=== PATIENT | male | born 1950 | race African-American/Black ===

== ENCOUNTER 2021-09-04 08:01 | Emergency (ER) | payer MEDICARE, OTHER ==
[~2021-09-04] VITALS: Ht 177.8 cm; Wt 95.3 kg
[2021-09-04 11:39] LABS: Basophils # (auto) 0 10 ^3/uL (0-0.2); Basophils % (auto) 0.2 % (0.0-2.0); Eosinophils # (auto) 0 10 ^3/uL (0-0.8); Eosinophils % (auto) 0.1 % (0.0-7.0); Hematocrit 41.3 % (41.0-53.0); Hemoglobin 13.2 g/dL (13.5-17.5); Lymphocytes # (auto) 0.8 10 ^3/uL (0.4-5.4); Lymphocytes % (auto) 17.8 % (10.0-50.0); Mean Corpuscular Hemoglobin 28.6 pg (28.0-32.0); Mean Corpuscular Volume 89.3 fL (80.0-100.0); Monocytes # (auto) 0.4 10 ^3/uL (0-1.3); Monocytes % (auto) 8.5 % (0.0-12.0); Neutrophils # (auto) 3.3 10 ^3/uL (1.6-8.6); Neutrophils % (auto) 73.4 % (37.0-80.0); Nucleated Red Blood Cells % 0.1 %; Red Blood Cells 4.62 10^6/uL (4.5-5.90); Red Cell Distribution Width 16.6 % (11.8-14.3); White Blood Cell 4.5 10^3/uL (4.4-10.8)
[2021-09-04 12:02] LABS: Albumin 3.7 g/dL (3.4-5.0); Calcium 8.6 mg/dL (8.5-10.1); Potassium 4.3 mmol/L (3.5-5.1)
[2021-09-04 12:05] LABS: BUN/Creatinine Ratio 16.2; Bilirubin, Total 2.5 mg/dL (0.2-1.0); Total Protein 7.5 g/dL (6.4-8.2)
[2021-09-04 12:38] VITALS: BP 120/87
[2021-09-04] MEDS ORDERED: DOXY-338 PO (15:24)
[2021-09-04] MEDS ORDERED: PERCOT PO (15:24)
== END 2021-09-04 15:44 | disposition home or self-care (01) ==
LOC: ER 08:01
DX: M48.061 Spinal stenosis, lumbar region without neurogenic claudication (principal); K80.20 Calculus of gallbladder without cholecystitis without obstruction; E03.9 Hypothyroidism, unspecified; Z95.1 Presence of aortocoronary bypass graft; Z79.899 Other long term (current) drug therapy; Z79.2 Long term (current) use of antibiotics
CPT/HCPCS: 36415; 72100; 74176; 76705; 80053; 83690; 84484; 85025; 93005

== ENCOUNTER 2021-09-29 13:04 | Emergency (ER) | payer MEDICARE, OTHER ==
[~2021-09-29] VITALS: Ht 180.3 cm; Wt 101.0 kg
[~2021-09-29 13:04] MED LIST: DOXY-338 PO; PERCOT PO
[2021-09-29 13:42] VITALS: BP 103/64
[2021-09-29 14:29] LABS: Basophils # (auto) 0 10 ^3/uL (0-0.2); Basophils % (auto) 0.9 % (0.0-2.0); Eosinophils # (auto) 0 10 ^3/uL (0-0.8); Eosinophils % (auto) 1.1 % (0.0-7.0); Hematocrit 42.1 % (41.0-53.0); Hemoglobin 13.1 g/dL (13.5-17.5); Lymphocytes # (auto) 1.2 10 ^3/uL (0.4-5.4); Lymphocytes % (auto) 36.9 % (10.0-50.0); Mean Corpuscular Hgb Conc. 31.2 g/dL (32.0-36.0); Mean Corpuscular Volume 86.8 fL (80.0-100.0); Monocytes # (auto) 0.5 10 ^3/uL (0-1.3); Monocytes % (auto) 14.7 % (0.0-12.0); Neutrophils # (auto) 1.5 10 ^3/uL (1.6-8.6); Neutrophils % (auto) 46.4 % (37.0-80.0); Nucleated Red Blood Cells % 0.2 %; Red Blood Cells 4.86 10^6/uL (4.5-5.90); Red Cell Distribution Width 16.9 % (11.8-14.3); White Blood Cell 3.3 10^3/uL (4.4-10.8)
[2021-09-29 14:47] LABS: Albumin 3.4 g/dL (3.4-5.0); Calcium 8.7 mg/dL (8.5-10.1); Potassium 4.2 mmol/L (3.5-5.1)
[2021-09-29 14:51] LABS: Bilirubin, Total 2.3 mg/dL (0.2-1.0); Total Protein 7.2 g/dL (6.4-8.2)
== END 2021-09-29 17:00 | disposition home or self-care (01) ==
LOC: ER 13:04
DX: R60.0 Localized edema (principal); I87.2 Venous insufficiency (chronic) (peripheral); I50.9 Heart failure, unspecified
CPT/HCPCS: 36415; 71045; 80053; 83615; 83880; 85025; 93005

== ENCOUNTER 2021-11-25 17:56 | Inpatient (IN) | payer MEDICARE, OTHER ==
[~2021-11-25] VITALS: Ht 177.8 cm; Wt 78.0 kg
[2021-11-25 20:19] VITALS: BP 97/73
[2021-11-25] MEDS ORDERED: ENOXAPARIN SOD 100 MG/1 ML SYRINGE SC ONE (20:30)
[2021-11-25 21:25] LABS: Basophils # (auto) 0.1 10 ^3/uL (0-0.2); Eosinophils # (auto) 0 10 ^3/uL (0-0.8); Eosinophils % (auto) 0.2 % (0.0-7.0); Hemoglobin 12.5 g/dL (13.5-17.5); Mean Corpuscular Hemoglobin 25.2 pg (28.0-32.0); Neutrophils # (auto) 4.6 10 ^3/uL (1.6-8.6); Nucleated Red Blood Cells % 0.1 %; Red Blood Cells 4.97 10^6/uL (4.5-5.90)
[2021-11-25 21:26] LABS: Basophils % (auto) 0.8 % (0.0-2.0); Hematocrit 39.8 % (41.0-53.0); Lymphocytes # (auto) 0.9 10 ^3/uL (0.4-5.4); Lymphocytes % (auto) 14.3 % (10.0-50.0); Mean Corpuscular Hgb Conc. 31.5 g/dL (32.0-36.0); Mean Corpuscular Volume 80.1 fL (80.0-100.0); Monocytes # (auto) 0.9 10 ^3/uL (0-1.3); Monocytes % (auto) 13.9 % (0.0-12.0); Neutrophils % (auto) 70.8 % (37.0-80.0); White Blood Cell 6.5 10^3/uL (4.4-10.8)
[2021-11-25 21:41] LABS: Albumin 3.2 g/dL (3.4-5.0); Anion Gap 11 (5-15); BUN/Creatinine Ratio 17.9; Blood Urea Nitrogen 21 mg/dL (7-18); Calcium 8.9 mg/dL (8.5-10.1); Carbon Dioxide 21 mmol/L (21-32); Chloride 106 mmol/L (98-107); GFR African American 79 mL/min; GFR Non-African American 65 mL/min; Glucose 108 mg/dL (74-106); INR 1.15 (0.9-1.15); Partial Thromboplastin Time 32.1 sec (24.6-33.4); Potassium 4.7 mmol/L (3.5-5.1); Sodium 138 mmol/L (136-145)
[2021-11-25 21:44] LABS: Alanine Aminotransferase 26 U/L (16-61); Alkaline Phosphatase 198 U/L (45-117); Aspartate Aminotransferase 29 U/L (15-37); Bilirubin, Total 3.8 mg/dL (0.2-1.0); Total Protein 7.9 g/dL (6.4-8.2)
[2021-11-25] MEDS ORDERED: FUROSEMIDE 20 MG TAB PO ONE (22:45)
[2021-11-25] MEDS ORDERED: DOCUSATE SOD 100 MG CAP PO PRN (23:30)
[2021-11-25] MEDS ORDERED: ONDANSETRON HCL 4 MG/2 ML VIAL IV PRN (23:30)
[2021-11-25] MEDS ORDERED: HYDROcodone-ACET 5/325MG TAB PO PRN (23:30)
[2021-11-25] MEDS ORDERED: ACETAMINOPHEN 325 MG TAB PO PRN (23:30)
[2021-11-26] MEDS ORDERED: NITROGLYCERIN 0.4 MG SL TAB SL PRN
[2021-11-26] MEDS ORDERED: MORPHINE SULFATE INJ 2 MG/ml SYRG IV PRN
[2021-11-26] MEDS ORDERED: SODIUM CHLOR 0.9% PF (SALINE LOCK) 10ML VIAL/SYR IV SCH (06:00)
[2021-11-26] MEDS ORDERED: FAMOTIDINE (10MG/ML) 2ML VL IV SCH (10:00)
[2021-11-26] MEDS ORDERED: ENOXAPARIN SOD 40 MG/0.4 ML SYRINGE SC SCH (10:00)
[2021-11-26] MEDS ORDERED: FUROSEMIDE 40 MG/4 ML VIAL IV SCH (10:00)
== END 2021-11-26 01:15 | disposition left against medical advice (07) | DRG 293 ==
LOC: ER 17:58 → TELE 23:54
PROVIDERS: ADMIT Nurse Practitioner Family; ATTEND Internal Medicine
DX: I50.23 Acute on chronic systolic (congestive) heart failure (principal); E88.09 Other disorders of plasma-protein metabolism, not elsewhere classified; Z79.01 Long term (current) use of anticoagulants; Z95.1 Presence of aortocoronary bypass graft; Z86.718 Personal history of other venous thrombosis and embolism; Z53.29 Procedure and treatment not carried out because of patient's decision for other reasons
CPT/HCPCS: 36415; 71045; 80053; 83735; 83880; 84484; 85025; 85610; 85730; 93005; 93971; 96372; G0378

== ENCOUNTER 2022-08-14 08:29 | Emergency (ER) | payer MEDICARE, OTHER ==
[~2022-08-14] VITALS: Ht 177.8 cm; Wt 83.0 kg
[~2022-08-14 08:29] MED LIST changes: -DOXY-338 PO; +DOXY-447 PO
[2022-08-14 09:10] LABS: Urine Bacteria FEW /hpf (None Seen); Urine Blood Negative /uL (Negative); Urine Specific Gravity 1.014 (1.001-1.035); Urine WBC 1 /hpf (0 - 3)
[2022-08-14] MEDS ORDERED: SODIUM CHLORIDE 0.9% 1,000 ML IV ONE (11:15)
[2022-08-14 11:54] LABS: Basophils # (auto) 0 10 ^3/uL (0-0.2); Basophils % (auto) 0.4 % (0.0-2.0); Eosinophils # (auto) 0 10 ^3/uL (0-0.8); Eosinophils % (auto) 0.1 % (0.0-7.0); Hematocrit 43.4 % (41.0-53.0); Lymphocytes # (auto) 0.8 10 ^3/uL (0.4-5.4); Mean Corpuscular Hemoglobin 27.8 pg (28.0-32.0); Mean Corpuscular Hgb Conc. 32.4 g/dL (32.0-36.0); Mean Corpuscular Volume 85.7 fL (80.0-100.0); Monocytes % (auto) 14.7 % (0.0-12.0); Neutrophils % (auto) 72.8 % (37.0-80.0); Nucleated Red Blood Cells % 0.1 %; Red Blood Cells 5.06 10^6/uL (4.5-5.90); Red Cell Distribution Width 19.3 % (11.8-14.3); White Blood Cell 6.8 10^3/uL (4.4-10.8)
[2022-08-14 12:12] LABS: Albumin 3.6 g/dL (3.4-5.0); BUN/Creatinine Ratio 12.3 (10.0-20.0); Calcium 9.5 mg/dL (8.5-10.1); Potassium 4.8 mmol/L (3.5-5.1)
[2022-08-14 12:15] LABS: Bilirubin, Total 5.2 mg/dL (0.2-1.0); Total Protein 7.9 g/dL (6.4-8.2)
[2022-08-14 12:21] LABS: INR 1.25 (0.9-1.15); Partial Thromboplastin Time 30.5 sec (24.6-33.4)
[2022-08-14] MEDS ORDERED: TAMS-35 PO (15:33)
[2022-08-14] MEDS ORDERED: TAMSULOSIN HYDROCHLORIDE 0.4 MG CAP PO ONE (15:45)
[2022-08-14 16:01] VITALS: BP 113/81
== END 2022-08-14 16:10 | disposition home or self-care (01) ==
LOC: ER 08:29
DX: N40.0 Benign prostatic hyperplasia without lower urinary tract symptoms (principal); R33.9 Retention of urine, unspecified; Z79.899 Other long term (current) drug therapy
CPT/HCPCS: 36415; 71045; 80053; 81001; 84484; 85025; 85610; 85730

== ENCOUNTER 2024-06-02 20:13 | Emergency (ER) | payer MEDICARE, OTHER ==
[~2024-06-02] VITALS: Ht 177.8 cm; Wt 81.8 kg
[~2024-06-02 20:13] MED LIST changes: -DOXY-447 PO; +DOXY1CAP58 PO; +TAMS-35 PO
--- NOTE | 2024-06-02 21:04 | ED.PDOC ---
History of Present Illness HPI Comments 74 y/o M, with a history of CABG, DVT, HTN, leukemia, pacemaker, and thyroid disease, is BIBA for c/o generalized weakness, today. Per EMS report, patient lives alone and his family called after finding him in current stated after having difficulty making contact for the past few days. Patient was reported by family to have been diagnosed with leukemia, recently. He was noted to have been found on scene in his bed lethargic and slow to respond to questions, with odorous urine smell and entire household being cluttered with various personal belongings. At time of initial assessment and contact with patient, patient is responds to his name but is slow to answering questions and providing additional relevant information. He has no further additional associated symptoms endorsed. Further history cannot be obtained, due to patient's current stated and absence of family/caretakers. Chief Complaint: General Weakness Time Seen by MD: 20:17 Primary Care Provider: FRANCO Sylvester Notes: Nurses Notes, Warehouse Supervisor 3Rd Shift Notes, Medications, Allergies Allergies: Coded Allergies: NO KNOWN ALLERGIES (Unverified , 09/04/21) Home Meds Active Scripts Tamsulosin Hcl (Flomax) 0.4 Mg Cap, 1 CAP PO DAILY for 10 Days, #10 CAP 11 Refills Prov:ALMITA BORJA MD 08/14/22 Oxycodone W/ Acetaminophen (Percocet 5/325MG) 1 Tab Tb, 1 TAB PO PRN PRN, #10 TAB 0 Refills one tablet every 4 to 6 hours as needed for pain Prov:LORI DOS SANTOS 09/04/21 Doxycycline (Monohydrate) (Doxycycline) 100 Mg Cap, 100 MG PO BID for 7 Days, #14 CAP 0 Refills Prov:LORI DOS SANTOS 09/04/21 Information Source: Patient, Emergency Med Personnel Mode of Arrival: EMS Severity: Moderate Timing: Hours Duration: Since onset Prehospital treatment: 12 Lead EKG, Accucheck, Shuttle Threader Past Medical History PAST MEDICAL HISTORY: CKF, HTN, Thyroid Past Medical History (Other): DVT Surgical History: CABG, Pacemaker Family History Family History: Reviewed,noncontributory to illness Social History Smoker: Non-Smoker Alcohol: Denies ETOH Use Drugs: Denies Drug Use Lives In: Home All Other Systems: Reviewed and Negative (Comprehensive systems review obtained and negative except for what is stated in the HPI.) Physical Exam General Appearance: No Apparent Distress, Normal, Other (tired appearing) HEENT: Normal ENT Inspection, Pharynx Normal, TMs Normal, Other (dry mucus membranes) Neck: Full Range of Motion, Non-Tender, Normal, Normal Inspection Respiratory: Chest Non-Tender, Lungs Clear, No Accessory Muscle Use, No Respiratory Distress, Normal Breath Sounds Cardiovascular: No Edema, No JVD, No Murmur, No Gallop, Normal Peripheral Pulses, Regular Rate/Rhythm Breast Exam: Deferred Gastrointestinal: No Organomegaly, Non Tender, No Pulsatile Mass, Normal Bowel Sounds, Soft Genitalia: Deferred Pelvic: Deferred Rectal: Deferred Extremities: No calf tenderness, Normal capillary refill, Normal inspection, Normal range of motion, Non-tender, No pedal edema Musculoskeletal : Apperance: Normal Neurologic: Alert, counseling services manager II-XII nml as Tested, No Motor Deficits, No Sensory Deficits, Other (slow to respond ) Cerebellar Function: Normal Reflexes: Normal Skin: Dry, Normal Color, Warm Lymphatic: No Adenopathy Was a procedure done? Was a procedure done?: Yes Sedation Sedation?: Yes Informed consent obtained: No Sedation start time: 22:07 Sedation end time: 22:27 Sedation total time: 20x minutes Central Line Recorder of insertion practice: Customer Development Representative Occupation of rn first assist: Attending Physician Indication: Volume resuscitation Room prepared for procedure: Yes Customer Development Representative performed hand hygien: Yes Maximal sterile barrier precau: Mask/Eye shield, Sterile gown, Cap, Sterlie gloves, Large sterlie drape Skin Preparation: Chlorhexidine gluconate, Alcohol Skin preparation completely dr: Yes Insertion site: Right, Femoral Central line catheter type: Wks-teigbgae-zmi dialysis Number of lumens: 3 Central line exchanged over a: No Antiseptic ointment applied to: No Post Assessment: Chest X-Ray, Proper placement Informed consent obtained: No Risks/benefits/alt described: No Intubation Indication: Altered Mental Status, Airway Protection Prep: No Preoxygenation Pretreated with: Other (propofol ) Medicated with: Other (100mg rocuronium IVP, 10mg Versed IVP) Intubation Approach: Orotracheal (8.0) Intubation size: cm (24) Informed consent obtained: No Risks/benefits/alt described: No EKG EKG : Pulse Rate (adult): 119 [place]: Normal Cardiac Rhythm: ST Block: LBBB (incomplete ) Hypertrophy: LVH ST: Normal Differential Dx Considerations may include: electrolyte imbalance, dehydration, viral syndrome, PNA, URI, among others X-Ray, Labs, Meds, VS Vital Signs Date Time Temp Pulse Resp B/P (MAP) Pulse Ox O2 Delivery O2 Flow Rate FiO2 06/02/24 23:10 99.0 117 16 98/68 (78) 100 99.0 06/02/24 22:56 99.0 120 16 97/61 (73) 100 99.0 06/02/24 22:22 143 16 143/115 (124) 100 100 06/02/24 22:21 143/115 06/02/24 22:20 141 12 143/115 (124) 100 06/02/24 22:18 127/64 06/02/24 22:00 107 18 127/64 (85) 99 06/02/24 21:11 99.9 124 18 117/54 (75) 97 99.9 06/02/24 21:11 124 18 97 Room Air* 0 21 06/02/24 21:04 119 06/02/24 20:28 97.3 121 21 140/85 (103) 94 97.3 06/02/24 20:14 119 Lab Test 06/02/24 23:06 06/02/24 22:42 06/02/24 21:03 Range/Units Lactic Acid Level 3.0 *H 2.2 *H 0.4-2.0 mmol/L Urine Color Light-orange Yellow Urine Clarity Turbid H Clear Urine pH 6.0 5.0-9.0 Urine Specific [place] 1.033 1.001-1.035 Urine Protein 2+ H Negative Urine Ketones 1+ H Negative Urine Blood 3+ H Negative /uL Urine Nitrite 2+ H Negative Urine Bilirubin Negative Negative Urine Urobilinogen 2 H Negative mg/dL Urine Leukocyte Esterase 2+ Negative /uL Urine RBC 155 0 - 3 /hpf Urine Microscopic WBC 37 H 0-3 /HPF Urine Squamous Epithelial Cells Few <5 /hpf Urine Bacteria Many H None Seen /hpf Urine Mucus Few None Seen Urine Glucose Normal Normal mg/dL White Blood Count 11.4 H 4.4-10.8 10^3/uL Red Blood Count 4.80 4.5-5.90 10^6/uL Hemoglobin 15.7 13.5-17.5 g/dL Hematocrit 45.9 41.0-53.0 % Mean Corpuscular Volume 95.6 80.0-100.0 fL Mean Corpuscular Hemoglobin 32.7 H 28.0-32.0 pg Mean Corpuscular Hemoglobin Concent 34.2 32.0-36.0 g/dL Red Cell Distribution Width 16.0 H 11.8-14.3 % Platelet Count 252 140-450 10^3/uL Mean Platelet Volume 8.0 6.9-10.8 fL Neutrophils (%) (Auto) 85.2 H 37.0-80.0 % Lymphocytes (%) (Auto) 4.2 L 10.0-50.0 % Monocytes (%) (Auto) 10.4 0.0-12.0 % Eosinophils (%) (Auto) 0.0 0.0-7.0 % Basophils (%) (Auto) 0.2 0.0-2.0 % Neutrophils # (Auto) 9.7 H 1.6-8.6 10 ^3/uL Lymphocytes # (Auto) 0.5 0.4-5.4 10 ^3/uL Monocytes # (Auto) 1.2 0-1.3 10 ^3/uL Eosinophils # (Auto) 0 0-0.8 10 ^3/uL Basophils # (Auto) 0 0-0.2 10 ^3/uL Nucleated Red Blood Cells 0.1 % Sodium Level 144 136-145 mmol/L Potassium Level 4.1 3.5-5.1 mmol/L Chloride Level 107 98-107 mmol/L Carbon Dioxide Level 25 20-31 mmol/L Anion Gap 12 5-15 Blood Urea Nitrogen 34 H 9-23 mg/dL Creatinine 1.17 0.700-1.30 mg/dL Glomerular Filtration Rate Calc 65 >90 mL/min BUN/Creatinine Ratio 29.1 H 10.0-20.0 Serum Glucose 137 H 74-106 mg/dL Calcium Level 10.1 8.7-10.4 mg/dL Total Bilirubin 4.3 H 0.2-1.0 mg/dL Aspartate Amino Transferase (AST) 134 H 13-40 U/L Alanine Aminotransferase (ALT) 34 7-40 U/L Alkaline Phosphatase 154 H 46-116 U/L Creatine Kinase 5336 H 46-171 U/L Troponin I High Sensitivity 110 *H </=54 ng/L B-Type Natriuretic Peptide 799.51 0-100 pg/mL Total Protein 7.8 5.7-8.2 g/dL Albumin 4.9 H 3.2-4.8 g/dL Microbiology Date/Time Source Procedure Growth Status 06/02/24 22:22 Sputum Gram Stain - Final Complete 06/02/24 22:22 Sputum Respiratory Culture - Final Complete [place] [address] Ph: [phone] DIAGNOSTIC IMAGING Diagnostic Imaging Report : [id number] Signed PATIENT: JELLY VILLA ACCT: [id number] UNIT: [id number] : 1950 LOC: ER ROOM / BED: / AGE / SEX: 74 / M ADM STATUS: REG ER SERVICE 25 ORDERING PHYSICIAN: JACK ORTIZ MD PROCEDURE(s): HWOCT - HEAD WITHOUT CONTRAST REASON: found down ORDER NUMBER(s): [id number], ACCESSION NUMBER(s): [id number] EXAM: CT HEAD WITHOUT CONTRAST INDICATION: found down TECHNIQUE: CT of the head without intravenous contrast. Radiation Dose : 1. Head: CT Dose: CTDI volume is 59.71 mGy. Dose-length product is 1076.53 mGy*cm The dose indicators for CT are the volume Computed Tomography (CT) Dose Index (CTDIvol) and the Dose Length Product (DLP), and are measured in units of mGy and mGy-cm, respectively. These indicators are not patient dose, but values generated from the CT scanner acquisition factors. The report includes radiation exposure data for exposures received during this examination. COMPARISON: None FINDINGS: Large mixed density left subdural hematoma measures up to 2.7 cm. There is significant mass-effect on the adjacent sulci and 1.6 cm rightward midline shift. Neurosurgical evaluation is advised. No significant ventriculomegaly The visualized paranasal sinuses and mastoid air cells are clear. The surrounding soft tissues and osseous structures are unremarkable. IMPRESSION: 1. Large mixed density left subdural hematoma measures up to 2.7 cm. There is significant mass-effect on the adjacent sulci and 1.6 cm rightward midline shift. Neurosurgical evaluation is advised. 2. Critical findings discussed with Dr. Villa by Dr. Torres via phone on 06/02/2024 10:03 PM. Radiation optimization: All CT scans at this facility use at least one of these dose optimization techniques: automated exposure control mA and/or kV adjustment per patient size (includes targeted exams where dose is matched to clinical indication) or iterative reconstruction. ATED BY: STEVEN TORRES MD DICTATED DATE/TIME: 06/02/242207 SIGNED BY: STEVEN TORRES MD SIGNED DATE/TIME: 06/02/242207 CC: [place] [address] Ph: [phone] DIAGNOSTIC IMAGING Diagnostic Imaging Report : [id number] Signed PATIENT: JELLY VILLA ACCT: [id number] UNIT: [id number] : 1950 LOC: ER ROOM / BED: / AGE / SEX: 74 / M ADM STATUS: REG ER SERVICE 25 ORDERING PHYSICIAN: JACK ORTIZ MD PROCEDURE(s): CXRP - CHEST PORTABLE REASON: found down ORDER NUMBER(s): [id number], ACCESSION NUMBER(s): [id number] CHEST RADIOGRAPH Indication: found down Technique: Single frontal view of the chest was obtained COMPARISON: XY CHEST PORTABLE on DOS: 08/14/22, CHEST PORTABLE on DOS: 11/25/21, CXRP on DOS: 11/25/21, CHEST XRAY 1 VIEW on DOS: 09/29/21 FINDINGS: Lines and Tubes: AICD noted overlying left chest wall. Lungs: Clear Pleura: No effusion. No pneumothorax. Cardiomediastinal contours: Unremarkable Bones: Unremarkable. Sternotomy. IMPRESSION: No acute abnormality demonstrated. ATED BY: REMINGTON ALAN MD DICTATED DATE/TIME: 06/02/242233 SIGNED BY: REMINGTON ALAN MD SIGNED DATE/TIME: 06/02/242233 CC: Time of 1ST Reevaluation: 20:47 Reevaluation 1ST: Unchanged Patient Education/Counseling: Other (patient intubated) Family Education/Counseling: No Family Present Additional Information Previous visit documents reviewed: August 14, 2022 and November 25, 2021 encounters for prostate hypertrophy and CHF exacerbation, respectively The following tests were ordered, and results were reviewed by me: EKG, troponin, CT head w/o contrast, CXR, UA, lactic acid w/reflex, CMP, CBC, BNP, creatine kinase Additional Information was gathered from interviewing the following independent historians: EMS I reviewed and agreed with the following test results read by other providers: CT head w/o contrast, CXR I discussed treatment and results with medical personnel and: Patient Departure 1 Departure Time of Disposition: 18:58 (Patient with a large subdural hematoma. GCS was 8. Patient was emergently intubated central line placed patient flow now to higher level of care ) Impression: Primary Impression: Subdural hematoma Additional Impression: Encephalopathy acute Disposition: 02 SHORT TERM HOSPITAL Condition: Critical Critical Care Note Critical Care Time?: Yes Critical care comment: Brain bleed Authorized and Performed by: Jack Ortiz MD Total critical care time: Approximately 49 minutes Due to a high probability of clinically significant, life threatening deterioration, the patient required my highest level of preparedness to intervene emergently and I personally spent this critical care time directly and personally managing the patient. This critical care time included obtaining a history; examining the patient; pulse oximetry; ordering and review of studies; arranging urgent treatment with development of a management plan; evaluation of patient's response to treatment; frequent reassessment; and, discussions with other providers. This critical care time was performed to assess and manage the high probability of imminent, life-threatening deterioration that could result in multi-organ failure. It was exclusive of separately billable procedures and treating other patients and teaching time. Please see my other sections and the rest of the note for further information on patient assessment and treatment. Stability Stability form required: No Heart Score Heart Score: Heart Score Response (Comments) Value History Moderate Suspicious 1 EKG Normal 0 Age >65 2 Risk Factors 1 or 2 risk factors 1 Troponin Normal limit 0 Total 4 I personally scribed for JACK ORTIZ MD ([email or web address]) on 06/02/24 at 21:04. Electronically submitted by Vikash Bose ([email or web address]). I personally scribed for JACK ORTIZ MD ([email or web address]) on 06/02/24 at 22:48. Electronically submitted by Vikash Bose ([email or web address]). I personally scribed for JACK ORTIZ MD ([email or web address]) on 06/02/24 at 22:48. Electronically submitted by Vikash Bose ([email or web address]). JACK ORTIZ MD Jun 02, 2024 21:04
[2024-06-02 21:11] VITALS: PULSE 124; RESP 18; O2SAT 97
[2024-06-02 21:16] LABS: Basophils # (auto) 0 10 ^3/uL (0-0.2); Basophils % (auto) 0.2 % (0.0-2.0); Eosinophils # (auto) 0 10 ^3/uL (0-0.8); Hematocrit 45.9 % (41.0-53.0); Hemoglobin 15.7 g/dL (13.5-17.5); Lymphocytes # (auto) 0.5 10 ^3/uL (0.4-5.4); Lymphocytes % (auto) 4.2 % (10.0-50.0); Mean Corpuscular Hemoglobin 32.7 pg (28.0-32.0); Mean Corpuscular Hgb Conc. 34.2 g/dL (32.0-36.0); Mean Corpuscular Volume 95.6 fL (80.0-100.0); Monocytes # (auto) 1.2 10 ^3/uL (0-1.3); Monocytes % (auto) 10.4 % (0.0-12.0); Neutrophils # (auto) 9.7 10 ^3/uL (1.6-8.6); Neutrophils % (auto) 85.2 % (37.0-80.0); Nucleated Red Blood Cells % 0.1 %; Platelet Count (auto) 252 10^3/uL (140-450); White Blood Cell 11.4 10^3/uL (4.4-10.8)
[2024-06-02 21:33] LABS: Alanine Aminotransferase 34 U/L (7-40); Anion Gap 12 (5-15); BUN/Creatinine Ratio 29.1 (10.0-20.0); Calcium 10.1 mg/dL (8.7-10.4); Carbon Dioxide 25 mmol/L (20-31); Potassium 4.1 mmol/L (3.5-5.1); Sodium 144 mmol/L (136-145); Total Protein 7.8 g/dL (5.7-8.2)
[2024-06-02] MEDS: SODIUM CHLORIDE 0.9% 1,000 ML IV ONE ×2 (21:37→22:51)
[2024-06-02 21:38] LABS: Albumin 4.9 g/dL (3.2-4.8); Alkaline Phosphatase 154 U/L (46-116); Aspartate Aminotransferase 134 U/L (13-40); Bilirubin, Total 4.3 mg/dL (0.2-1.0); Blood Urea Nitrogen 34 mg/dL (9-23); Chloride 107 mmol/L (98-107); Glucose 137 mg/dL (74-106); Lactic Acid w/Reflex 2.2 mmol/L (0.4-2.0)
[2024-06-02 21:46] LABS: Creatine Kinase IFCC 5336 U/L (46-171)
--- NOTE | 2024-06-02 22:11 | DVH ---
EXAM: CT HEAD WITHOUT CONTRAST INDICATION: found down TECHNIQUE: CT of the head without intravenous contrast. Radiation Dose : 1. Head: CT Dose: CTDI volume is 59.71 mGy. Dose-length product is 1076.53 mGy*cm The dose indicators for CT are the volume Computed Tomography (CT) Dose Index (CTDIvol) and the Dose Length Product (DLP), and are measured in units of mGy and mGy-cm, respectively. These indicators are not patient dose, but values generated from the CT scanner acquisition factors. The report includes radiation exposure data for exposures received during this examination. COMPARISON: None FINDINGS: Large mixed density left subdural hematoma measures up to 2.7 cm. There is significant mass-effect on the adjacent sulci and 1.6 cm rightward midline shift. Neurosurgical evaluation is advised. No significant ventriculomegaly The visualized paranasal sinuses and mastoid air cells are clear. The surrounding soft tissues and osseous structures are unremarkable. IMPRESSION: 1. Large mixed density left subdural hematoma measures up to 2.7 cm. There is significant mass-effect on the adjacent sulci and 1.6 cm rightward midline shift. Neurosurgical evaluation is advised. 2. Critical findings discussed with Dr. Almodovar by Dr. Torres via phone on 06/02/2024 10:03 PM. Radiation optimization: All CT scans at this facility use at least one of these dose optimization sally hniques: automated exposure control mA and/or kV adjustment per patient size (includes targeted exam s where dose is matched to clinical indication) or iterative reconstruction.
[2024-06-02] MEDS: ROCURONIUM 10MG/ML 10ML VIAL IV ONE (22:18)
[2024-06-02] MEDS: MIDAZOLAM HCL 5 MG/ML-1ML VIAL IV ONE (22:20)
[2024-06-02] MEDS: PROPOFOL 100 ML IV SCH (22:21)
[2024-06-02] MEDS: levETIRAcetam 1000 mg/100ml 200 ML IV ONE (22:21)
--- NOTE | 2024-06-02 22:37 | DVH ---
CHEST RADIOGRAPH Indication: found down Technique: Single frontal view of the chest was obtained COMPARISON: XY CHEST PORTABLE on DOS: 08/14/22, CHEST PORTABLE on DOS: 11/25/21, CXRP on DOS: 11/25/21, C HEST XRAY 1 VIEW on DOS: 09/29/21 FINDINGS: Lines and Tubes: AICD noted overlying left chest wall. Lungs: Clear Pleura: No effusion. No pneumothorax. Cardiomediastinal contours: Unremarkable Bones: Unremarkable. Sternotomy. IMPRESSION: No acute abnormality demonstrated.
[2024-06-02 23:10] VITALS: BP 98/68; PULSE 117; RESP 16; TEMP 99; O2SAT 100
[2024-06-02 23:12] LABS: Urine Bacteria MANY /hpf (None Seen); Urine Blood 3+ /uL (Negative); Urine Clarity Turbid (Clear); Urine Color Light-Orange (Yellow); Urine Mucus FEW (None Seen); Urine Protein, UAD 2+ (Negative); Urine Specific Gravity 1.033 (1.001-1.035); Urine Squamous Epithelial Cell FEW /hpf (<5); Urine Urobilinogen 2 mg/dL (Negative); Urine WBC 37 /HPF (0-3)
--- NOTE | 2024-06-03 01:40 | DVH ---
CHEST RADIOGRAPH Indication: Post Intubation Technique: Single frontal view of the chest was obtained COMPARISON: XY CHEST PORTABLE on DOS: 06/02/24, XY CHEST PORTABLE on DOS: 08/14/22, CHEST PORTABLE on DO S: 11/25/21, CXRP on DOS: 11/25/21, CHEST XRAY 1 VIEW on DOS: 09/29/21 FINDINGS: Lines and Tubes: Endotracheal tube terminates 1.9 cm above the julio. Pacemaker/ AICD is seen in the left upper chest with 2 cardiac leads. Sternal wires in place. Enteric tube courses below the diaph ragm with tip collimated from view. Lungs: Clear Pleura: No effusion. No pneumothorax. Cardiomediastinal contours: Unremarkable Bones: Unremarkable IMPRESSION: 1. No acute disease. 2. Lines and tubes as above
--- NOTE | 2024-06-03 05:37 | ECG ---
[facility] Test Date: 2024-06-02 Test Time: 20:14:54 Pat Name: JELLY VILLA Department: ED Room: Gender: M Nutrition Director: : 1950 Requested By: JACK ORTIZ Order Number: [id number] Reading MD: Brock Cardoso Measurements Intervals [place] Rate: 119 P: 47 NV: 136 QRS: -38 QRSD: 110 T: 93 QT: 330 QTc: 465 Interpretive Statements Sinus tachycardia Multiple premature complexes, vent & supraven Incomplete left bundle branch block Left ventricular hypertrophy Anterior Q waves, possibly due to LVH Electronically Signed On 06-05-2024 13:59:43 PDT by Brock Cardoso Please click the below link to view image of tracing.
== END 2024-06-02 23:29 | disposition short-term general hospital (02) ==
LOC: EDBD 20:13 → ER 20:13
DX: I13.0 Hypertensive heart and chronic kidney disease with heart failure and stage 1 through stage 4 chronic kidney disease, or unspecified chronic kidney disease (principal); I50.9 Heart failure, unspecified; N17.9 Acute kidney failure, unspecified; C95.90 Leukemia, unspecified not having achieved remission; E07.9 Disorder of thyroid, unspecified; R53.1 Weakness; N18.4 Chronic kidney disease, stage 4 (severe); R55 Syncope and collapse; Z95.0 Presence of cardiac pacemaker; Z95.1 Presence of aortocoronary bypass graft; Z86.718 Personal history of other venous thrombosis and embolism; Z79.899 Other long term (current) drug therapy
CPT/HCPCS: 31500; 36415; 36556; 36600; 70450; 71045; 80053; 81001; 82550; 82805; 83605; 83880; 84484; 85025; 87070; 87205; 93005; 96361; 96365; 99285; J1953; J2250; J2704